=== PATIENT | female | born 2000 ===

== ENCOUNTER 2024-09-26 11:52 | Emergency (ER) | payer SELFPAY ==
[2024-09-26] MEDS: Sodium Chloride 0.9% 1,000 ML IV STA ×2 (12:39→14:28)
[2024-09-26 12:42] LABS: HEMATOCRIT 44.7 % (37.0-47.0); HEMOGLOBIN 15.4 g/dL (12.0-16.0); MEAN CORPUSCULAR HEMOGLOBIN 27.7 pg (28.0-32.0); MEAN CORPUSCULAR HGB CONC 34.5 g/dL (32.0-36.0); MEAN CORPUSCULAR VOLUME 80.4 fL (83.0-99.0); MEAN PLATELET VOLUME 9.2 fL (9.4-12.3); PLATELET COUNT,PLT 266 K/uL (150-400); RED BLOOD CELL COUNT 5.56 M/uL (4.10-5.30); WHITE BLOOD CELL COUNT,WBC 8.69 K/uL (3.9-11.3)
[2024-09-26 13:11] LABS: LYMPHOCYTES ABSOLUTE MAN 2.43 K/uL (1.00-4.80); LYMPHOCYTES PERCENT MAN 28 % (24-44); MONOCYTES PERCENT MAN 8 % (0-8); SEG NEUTROPHILS ABSOLUTE MAN 5.47 K/uL (1.80-7.70); SEG NEUTROPHILS PERCENT MAN 63 % (41-71)
[2024-09-26 13:12] LABS: A/G RATIO 0.9 (0.9-1.6); BILIRUBIN TOTAL 0.6 mg/dL (0.2-1.0); CALCIUM 9.2 mg/dL (8.5-10.1); CARBON DIOXIDE,CO2 13.5 mmol/L (21.0-32.0); EST CRCL DRUG DOSING (CG) 71.14 mL/min; PROTEIN TOTAL,TP 8.7 g/dL (6.4-8.2)
[2024-09-26 13:35] LABS: APPEARANCE,URINE CLEAR; COLOR,URINE YELLOW; GLUCOSE,URINE NEGATIVE (NEGATIVE); KETONES,URINE >=80 mg/dL (NEGATIVE); LEUKOCYTE ESTERASE,URINE NEGATIVE (NEGATIVE); NITRITE,URINE NEGATIVE (NEGATIVE); OCCULT BLOOD,URINE MODERATE (NEGATIVE); PROTEIN,URINE >=300 mg/dL (NEGATIVE)
[2024-09-26 13:40] LABS: BILIRUBIN,URINE MODERATE (NEGATIVE)
[2024-09-26 13:41] LABS: RBC,URINE 0-2 (0-2/HPF)
[2024-09-26 13:42] LABS: BACTERIA,URINE RARE (NEGATIVE); EPITHELIAL CELLS,URINE RARE (NONE-FEW)
[2024-09-26] MEDS: Iopamidol 755 MG/ML 500 ML Multipack Bottle IVPUSH STA (14:49)
[2024-09-26] MEDS: Alum Hydrox/Mag Hydrox/Simeth 15 ML, Lidocaine 2% 5 ML PO ONE (16:15)
== END 2024-09-26 18:21 | disposition home or self-care (01) ==
LOC: MW.ED 11:52
DX: K20.90 Esophagitis, unspecified without bleeding (principal); L01.00 Impetigo, unspecified; Z75.3 Unavailability and inaccessibility of health-care facilities; Z79.899 Other long term (current) drug therapy
CPT/HCPCS: 36415; 74177; 80053; 81001; 81025; 83690; 85025; 96360; 96361; 99284; A9270; J7030; Q9967